=== PATIENT | female | born 1980 | race Caucasian/White ===

== ENCOUNTER 2016-06-18 05:36 | Day surgery (SDC) | payer OTHER ==
[~2016-06-18] VITALS: Ht 157.5 cm; Wt 71.2 kg
[2016-06-18 05:52] VITALS: BP 120/70
[2016-06-18] MEDS ORDERED: ZOLOFT25 MG PO (06:02)
[2016-06-18] MEDS ORDERED: ENDOCET 5-3251 EACH PO (09:04)
[2016-06-18] MEDS ORDERED: IBUPROFEN800 MG PO (09:04)
[2016-06-18 11:04] VITALS: BP 99/57
[2016-06-18 12:07] VITALS: BP 106/54
== END 2016-06-18 12:21 | disposition home or self-care (01) ==
LOC: SDC 05:36
DX: D06.9 Carcinoma in situ of cervix, unspecified (principal); N92.1 Excessive and frequent menstruation with irregular cycle
CPT/HCPCS: 88307; J0131; J0690; J1100; J1170; J1200; J1885; J2175; J2250; J2405; J2710; J2765; J3010

== ENCOUNTER 2017-08-30 08:49 | Emergency (ER) | payer OTHER ==
[~2017-08-30] VITALS: Ht 157.5 cm; Wt 76.6 kg
[~2017-08-30 08:49] MED LIST: ENDOCET 5-3251 EACH PO; IBUPROFEN800 MG PO; ZOLOFT25 MG PO
[2017-08-30] MEDS ORDERED: MOTRIN800 MG PO (13:38)
[2017-08-30] MEDS ORDERED: AUGMENTIN875 MG PO (13:38)
[2017-08-30 13:50] VITALS: BP 119/88
== END 2017-08-30 13:50 | disposition home or self-care (01) ==
LOC: EME 08:49
DX: S01.25XA Open bite of nose, initial encounter (principal); W54.0XXA Bitten by dog, initial encounter; Y92.524 Gas station as the place of occurrence of the external cause; F32.9 Major depressive disorder, single episode, unspecified; Z23 Encounter for immunization; Z20.3 Contact with and (suspected) exposure to rabies; Z29.14 Encounter for prophylactic rabies immune globulin; Z87.891 Personal history of nicotine dependence; Z90.710 Acquired absence of both cervix and uterus
CPT/HCPCS: 99281; 99283